=== PATIENT | female | born 1975 | race Caucasian/White ===

== ENCOUNTER 2024-04-03 03:10 | Emergency (ER) | payer OTHER ==
[2024-04-03 03:31] VITALS: O2SAT 100
--- NOTE | 2024-04-03 03:36 | ED Physician Documentation ---
PD HPI ABD PAIN - Stated complaint Stated Complaint: ABD PAIN - Chief complaint Chief Complaint: Abd Pain - History obtained from History obtained from: Patient - Additional information Additional information: HPI from patient. Patient c/o epigastric pain, episodic x 2 days with nausea, vomiting. Denies h/o similar symptoms. No inciting event. Exacerbated with PO intake although tolerating PO, and no ameliorating factors. Review of Systems Constitutional: denies: Fever, Chills, Sweats Cardiac: reports: Reviewed and negative Respiratory: reports: Reviewed and negative GI: reports: Abdominal Pain, Nausea, Vomiting. 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 - Present Medications Home Medications: Ambulatory Orders Medication Instructions Recorded Confirmed Estradiol [Menostar] 1 each TD 04/03/24 Ondansetron Odt [Zofran Odt] 4 mg TL Q6H PRN #14 tablet 04/03/24 - Allergies Allergies/Adverse Reactions: Allergies Allergy/AdvReac Type Severity Reaction Status Date / Time almond AdvReac Rash Verified 04/03/24 03:22 Latex, Natural Rubber AdvReac Rash Verified 04/03/24 03:21 dairy products AdvReac Rash Uncoded 04/03/24 03:46 - Social History Does the pt smoke?: No Smoking Status: Former smoker Does the pt drink ETOH?: Yes ETOH Use: Wine Does the pt have substance abuse?: No - Immunizations Immunizations are current?: Yes - POLST Patient has POLST: No PD ED PE NORMAL - Vitals Vital signs reviewed: Yes - General General: Alert and oriented X 3, No acute distress, Well developed/nourished - HEENT HEENT: Moist mucous membranes - Cardiac Cardiac: RRR, No murmur - Respiratory Respiratory: No respiratory distress, Clear bilaterally - Abdomen Abdomen: Normal bowel sounds, Soft, Non distended, Other (mild TTP across upper abdomen and periumbilicus, no rebound or guarding) - Back Back: No CVA TTP Results - Vitals Vitals: Oxygen O2 Source Room air - Labs Labs: Laboratory Tests 04/03/24 04/03/24 03:40 03:40 WBC 9.3 RBC 4.95 Hgb 15.1 Hct 45.5 MCV 91.9 MCH 30.5 MCHC 33.2 RDW 12.1 Plt Count 279 MPV 11.3 H Neut # (Auto) 7.1 H Lymph # (Auto) 1.1 L [place] # (Auto) 0.5 Eos # (Auto) 0.5 Baso # (Auto) 0.1 Absolute Nucleated RBC 0.00 Nucleated RBC % 0.0 Sodium 137 Potassium 4.1 Chloride 101 Carbon Dioxide 28 Anion Gap 8.0 BUN 15 Creatinine 0.8 Estimated GFR (MDRD) 77 L Glucose 132 H Calcium 10.2 Total Bilirubin 0.6 AST 15 ALT 12 Alkaline Phosphatase 112 Total Protein 7.7 Albumin 4.6 Globulin 3.1 Albumin/Globulin Ratio 1.5 Lipase 48 - Rads (name of study) CT A/P with IV contrast Relevant Findings:: Prelim report reviewed, See rad report PD Medical Decision Making - ED course Complexity details: reviewed results, re-evaluated patient, considered differential, d/w patient ED course: No concerning nor diagnostic findings on blood tests, UA, CT A/P. Small volume ascites and likely duodenal diverticulum noted on CT A/P, felt to be incidental findings. Cause of patient's symptoms is not apparent at this time. Results d/w patient, return precautions reviewed, advised to follow up with PCP next available appointment for reevaluation. She is given 1 liter NS IV during ED stay along with 4mg IV zofran, 30 mg IV toradol. She reports good symptom relief with these interventions. Departure - Departure Disposition: 01 Home, Self Care Clinical Impression: Abdominal pain Qualifiers: Abdominal location: generalized Qualified Code(s): R10.84 - Generalized abdominal pain Condition: Good Instructions: ED Abdominal Pain Female Non-Specific Abdominal Pain Prescriptions: Ondansetron Odt [Zofran Odt] 4 mg TL Q6H PRN #14 tablet PRN Reason: Nausea / Vomiting Discharge Date/Time: 04/03/24 08:06
[2024-04-03] MEDS: ONDANSETRON 4 MG/2 ML VIAL IVP STA (03:57)
[2024-04-03] MEDS: KETOROLAC 30 MG/ML VIAL IVP STA (03:57)
[2024-04-03] MEDS: SODIUM CHLORIDE 0.9% 1,000 ML IV STA (03:57)
[2024-04-03 04:09] LABS: BASOPHILS # (AUTO) 0.1 10^3/uL (0.0-0.1); BASOPHILS % (AUTO) 0.8 %; EOSINOPHILS # (AUTO) 0.5 10^3/uL (0.0-0.7); EOSINOPHILS % (AUTO) 4.9 %; HCT - HEMATOCRIT 45.5 % (37.0-47.0); HGB - HEMOGLOBIN 15.1 g/dL (12.0-16.0); LYMPHOCYTES # (AUTO) 1.1 10^3/uL (1.5-3.5); LYMPHOCYTES % (AUTO) 11.8 %; MEAN CORPUSCULAR HEMOGLOBIN 30.5 pg (27.0-31.0); MEAN CORPUSCULAR HGB CONC 33.2 g/dL (32.0-36.0); MEAN CORPUSCULAR VOLUME 91.9 fL (81.0-99.0); MEAN PLATELET VOLUME 11.3 fL (7.9-10.8); MONOCYTES # (AUTO) 0.5 10^3/uL (0.0-1.0); MONOCYTES % (AUTO) 5.3 %; NEUTROPHILS # (AUTO) 7.1 10^3/uL (1.5-6.6); PLT - PLATELET COUNT 279 10^3/uL (130-450); RED BLOOD COUNT 4.95 10^6/uL (4.20-5.40); RED CELL DISTRIBUTION WIDTH 12.1 % (12.0-15.0); WHITE BLOOD COUNT 9.3 x10^3/uL (4.8-10.8)
[2024-04-03 04:25] LABS: ALBUMIN 4.6 g/dL (3.2-5.5); ALBUMIN/GLOBULIN RATIO 1.5 (1.0-2.2); BILIRUBIN,TOTAL 0.6 mg/dL (0.2-1.0); CALCIUM 10.2 mg/dL (8.5-10.3); CREATININE 0.8 mg/dL (0.6-1.3); POTASSIUM 4.1 mmol/L (3.5-4.5); TOTAL PROTEIN 7.7 g/dL (6.4-8.9)
[2024-04-03] MEDS ORDERED: iohexoL-300 100 ML VIAL ONE (04:28)
[2024-04-03] MEDS: iohexoL-300 100 ML VIAL IVP ONE (04:58)
[2024-04-03 08:15] VITALS: BP 108/55
--- NOTE | 2024-04-03 08:26 | CT Report ---
PROCEDURE: Abdomen/Pelvis W INDICATIONS: LLQ pain,tenderness CONTRAST: 100 ML OMNI 300 TECHNIQUE: After the administration of intravenous contrast, a CT scan of the abdomen and pelvis was performed. Images were recorded and evaluated at appropriate window settings. Reformats: coronal and sagittal. F or radiation dose reduction, the following was used: automated exposure control, adjustment of mA and /or kV according to patient size. COMPARISON: None. FINDINGS: Image quality: Diagnostic. Lower chest: Unremarkable. Liver: No solid mass. Gallbladder: No radiopaque stones or wall thickening. Biliary tree: No intrahepatic or extrahepatic dilation, accounting for age. Spleen: No splenomegaly. Pancreas: No pancreatic ductal dilation. Adrenals: No adrenal nodule. Kidneys and ureters: No hydronephrosis. No renal cystic lesion which requires follow up. No solid mas s. Stomach, bowel and peritoneum: There is no bowel obstruction. No abnormal bowel wall thickening or me senteric fat stranding. 2.1 x 2.2 focus of air along lateral aspect of second duodenal segment likely represent 1 no diverticulum. Appendix is visualized and is within normal limits. Fecal stasis in the colon is seen. No abscess collection. No peritoneal free air. Small amount of free fluid in lower pe lvis. Lymph nodes: No central or retroperitoneal adenopathy. Vessels: No infrarenal aortic aneurysm. Patent portal vein. PELVIS Reproductive organs: Unremarkable. Bladder: No abnormal wall thickening, accounting for underdistention. Pelvic lymph nodes: No pelvic adenopathy by size criteria. Bones: No aggressive osseous abnormality. Degenerative disc disease throughout lower thoracic and lum bar spine is seen. Other: No significant ventral or inguinal hernia. IMPRESSION: 1. Small amount of ascites fluid. No gross free air. 2. No bowel obstruction. No abnormal bowel wall thickening. Likely diverticulum involving second port ion of duodenum as above. No abscess collection. Findings are concordant with preliminary interpretation provided by [facility]. Reviewed by: Edison Sharma MD on 04/03/2024 8:24 AM PDT Approved by: Edison Sharma MD on 04/03/2024 8:24 AM PDT Station ID: [id number]
== END 2024-04-03 08:06 | disposition home or self-care (01) ==
LOC: ED 03:10
DX: R10.84 Generalized abdominal pain (principal); Z87.891 Personal history of nicotine dependence
CPT/HCPCS: 36415; 74177; 80053; 83690; 85025; 96361; 96374; 99284; Q9967